=== PATIENT | female | born 1950 | race Caucasian/White ===

== ENCOUNTER 2018-03-12 17:52 | Inpatient (IN) | payer MEDICARE ==
[~2018-03-12] VITALS: Ht 182.9 cm; Wt 121.6 kg
[2018-03-12 18:08] VITALS: BP 95/65
[2018-03-12] MEDS ORDERED: SERT25TA3 PO (18:26)
[2018-03-12] MEDS ORDERED: LEVO150T5 PO (18:26)
[2018-03-12] MEDS ORDERED: OXYC10TA6 PO (18:26)
[2018-03-12] MEDS ORDERED: IBUPROFEN 600 MG TABLET PO PRN (19:00)
[2018-03-12 19:26] VITALS: BP 122/82
[2018-03-12] MEDS: METRONIDAZOLE PMX 500MG/100ML 100 ML IV SCH (19:54)
[2018-03-12] MEDS: HEPARIN 5,000 UNITS/ML, 1ML SQ SCH (19:54)
[2018-03-12] MEDS: NS + 20MEQ KCL 1,000 ML IV SCH (19:54)
[2018-03-12] MEDS: ONDANSETRON 2MG/ML, 2ML IVPush PRN (19:54)
[2018-03-12] MEDS: OXYcodone IR 5MG TABLET PO PRN (19:55)
[2018-03-12 20:14] LABS: MEAN CORPUSCULAR HEMOGLOBIN 30.9 pg (27.0-34.8); MEAN CORPUSCULAR HGB CONC 34.5 g/dL (32.4-35.8); MEAN CORPUSCULAR VOLUME 89.5 fL (80-100); MEAN PLATELET VOLUME 9.3 fL (7.4-10.4); PLATELET COUNT 270 x10^3/uL (130-400); RED BLOOD COUNT 3.86 x10^6/uL (3.82-5.3); RED CELL DISTRIBUTION WIDTH 16.9 % (9.6-15.2)
[2018-03-12 20:25] LABS: ANION GAP 8 mmol/L (5-15); CALCIUM 9.7 mg/dL (8.5-10.1); CHLORIDE 103 mmol/L (98-107)
[2018-03-12 20:30] LABS: CREATININE 1.59 mg/dL (0.55-1.02)
[2018-03-12 20:40] LABS: MD YES
[2018-03-12 20:42] LABS: BASOS#(MANUAL) 0.09 x10^3/uL (0-0.1); BASOS% (MANUAL) 1 % (0-1); EOS#(MANUAL) 0.09 x10^3/uL (0.0-0.4); EOS% (MANUAL) 1 % (1-7); LYMPH#(MANUAL) 1.22 x10^3/uL (1-3.4); LYMPHS% (MANUAL) 14 % (22-44); MONOS#(MANUAL) 0.09 x10^3/uL (0.3-2.7); MONOS% (MANUAL) 1 % (2-9); SEG#(MANUAL) 7.22 x10^3/uL (1.8-6.8); SEGS% (MANUAL) 83 % (42-75)
[2018-03-12 20:43] LABS: ANISOCYTOSIS 1+
[2018-03-12 20:45] LABS: <PLATELET ESTIMATE> ADEQUATE; <PLT MORPHOLOGY> NORMAL PLT MORPH
[2018-03-12] MEDS: HYDROmorphone 2 MG/ML, 1ML IVPush PRN (22:24)
[2018-03-12] MEDS: CEFTRIAXONE PMX 1GM/50ML 50 ML IV SCH (22:24)
[2018-03-13] MEDS: METRONIDAZOLE PMX 500MG/100ML 100 ML IV SCH ×3 (02:54→21:10)
[2018-03-13] MEDS: ONDANSETRON 2MG/ML, 2ML IVPush PRN ×3 (04:23→21:27)
[2018-03-13] MEDS: HYDROmorphone 2 MG/ML, 1ML IVPush PRN ×5 (04:23→21:10)
[2018-03-13 04:42] LABS: MEAN CORPUSCULAR HEMOGLOBIN 30.7 pg (27.0-34.8); MEAN CORPUSCULAR HGB CONC 34.2 g/dL (32.4-35.8); MEAN CORPUSCULAR VOLUME 89.9 fL (80-100); MEAN PLATELET VOLUME 9.3 fL (7.4-10.4); PLATELET COUNT 295 x10^3/uL (130-400); RED CELL DISTRIBUTION WIDTH 17.5 % (9.6-15.2)
[2018-03-13 04:54] LABS: ALBUMIN 2.4 g/dL (3.4-5.0); ANION GAP 11 mmol/L (5-15); CALCIUM 9.4 mg/dL (8.5-10.1); CHLORIDE 101 mmol/L (98-107)
[2018-03-13 04:57] LABS: ALANINE AMINOTRANSFERASE 409 U/L (12-78); ALKALINE PHOSPHATASE 963 U/L (45-117)
[2018-03-13 04:59] LABS: CREATININE 1.57 mg/dL (0.55-1.02); TOTAL PROTEIN 6.7 g/dL (6.4-8.2)
[2018-03-13 05:01] LABS: BILIRUBIN,TOTAL 19.9 mg/dL (0.2-1.0)
[2018-03-13] MEDS ORDERED: POTASSIUM CHLORIDE 20 MEQ TAB.ER.PRT PO ONE (05:30)
[2018-03-13] MEDS: LEVOTHYROXINE 150 MCG TABLET PO SCH (05:41)
[2018-03-13 05:57] LABS: MD YES
[2018-03-13 06:04] LABS: ANISOCYTOSIS 1+; BASOS#(MANUAL) 0.17 x10^3/uL (0-0.1); BASOS% (MANUAL) 2 % (0-1); EOS#(MANUAL) 0.09 x10^3/uL (0.0-0.4); EOS% (MANUAL) 1 % (1-7); LYMPH#(MANUAL) 1.53 x10^3/uL (1-3.4); LYMPHS% (MANUAL) 18 % (22-44); MONOS#(MANUAL) 0.51 x10^3/uL (0.3-2.7); MONOS% (MANUAL) 6 % (2-9); SEG#(MANUAL) 6.21 x10^3/uL (1.8-6.8); SEGS% (MANUAL) 73 % (42-75)
[2018-03-13 06:05] LABS: <PLATELET ESTIMATE> ADEQUATE; <PLT MORPHOLOGY> NORMAL PLT MORPH
[2018-03-13 07:30] VITALS: BP 115/71
[2018-03-13] MEDS ORDERED: PROMETHAZINE 12.5 MG SUPP PR PRN (09:00)
[2018-03-13] MEDS: HEPARIN 5,000 UNITS/ML, 1ML SQ SCH ×2 (09:50→19:48)
[2018-03-13] MEDS: SERTRALINE 50MG TABLET PO SCH (09:50)
[2018-03-13] MEDS: ONDANSETRON ODT 4 MG PO PRN ×2 (09:50→21:10)
[2018-03-13 14:35] VITALS: BP 113/79
[2018-03-13] MEDS: NS + 20MEQ KCL 1,000 ML IV SCH (17:13)
[2018-03-13] MEDS: PROCHLORPERAZINE 5 MG TABLET PO PRN (17:36)
[2018-03-13 19:24] VITALS: BP 106/69
[2018-03-13] MEDS: CEFTRIAXONE PMX 1GM/50ML 50 ML IV SCH (19:47)
[2018-03-14 01:09] VITALS: BP 128/74
[2018-03-14] MEDS: HYDROmorphone 2 MG/ML, 1ML IVPush PRN ×6 (01:15→21:18)
[2018-03-14] MEDS: PROCHLORPERAZINE 5 MG TABLET PO PRN (01:15)
[2018-03-14 04:28] LABS: MEAN CORPUSCULAR HEMOGLOBIN 31.2 pg (27.0-34.8); MEAN CORPUSCULAR HGB CONC 34.5 g/dL (32.4-35.8); MEAN CORPUSCULAR VOLUME 90.2 fL (80-100); MEAN PLATELET VOLUME 9.1 fL (7.4-10.4); PLATELET COUNT 285 x10^3/uL (130-400); RED BLOOD COUNT 3.65 x10^6/uL (3.82-5.3); RED CELL DISTRIBUTION WIDTH 16.7 % (9.6-15.2)
[2018-03-14 04:41] LABS: ALBUMIN 2.3 g/dL (3.4-5.0); ANION GAP 7 mmol/L (5-15); CALCIUM 9.1 mg/dL (8.5-10.1); CHLORIDE 103 mmol/L (98-107)
[2018-03-14 04:45] LABS: ALANINE AMINOTRANSFERASE 330 U/L (12-78); ALKALINE PHOSPHATASE 865 U/L (45-117); TOTAL PROTEIN 6.4 g/dL (6.4-8.2)
[2018-03-14 04:49] LABS: BILIRUBIN,TOTAL 17.6 mg/dL (0.2-1.0)
[2018-03-14 05:11] LABS: MD YES
[2018-03-14 05:16] LABS: ANISOCYTOSIS 1+; BASOS#(MANUAL) 0.16 x10^3/uL (0-0.1); BASOS% (MANUAL) 2 % (0-1); EOS#(MANUAL) 0.39 x10^3/uL (0.0-0.4); EOS% (MANUAL) 5 % (1-7); LYMPH#(MANUAL) 0.94 x10^3/uL (1-3.4); LYMPHS% (MANUAL) 12 % (22-44); METAMYELOCYTES# (MANUAL) 0.08 x10^3/uL (0-0); METAMYELOCYTES% (MANUAL) 1 % (0-1); MONOS#(MANUAL) 0.55 x10^3/uL (0.3-2.7); MONOS% (MANUAL) 7 % (2-9); MYELOCYTES# (MANUAL) 0.08 x10^3/uL (0-0); MYELOCYTES% (MANUAL) 1 % (0-0); SEG#(MANUAL) 5.62 x10^3/uL (1.8-6.8); SEGS% (MANUAL) 72 % (42-75)
[2018-03-14] MEDS: METRONIDAZOLE PMX 500MG/100ML 100 ML IV SCH ×3 (05:16→21:19)
[2018-03-14] MEDS: LEVOTHYROXINE 150 MCG TABLET PO SCH (05:16)
[2018-03-14 05:18] LABS: POLYCHROMASIA 1+; TARGET CELLS 1+
[2018-03-14 05:19] LABS: <PLATELET ESTIMATE> ADEQUATE; LARGE PLATELETS 1+
[2018-03-14] MEDS: ONDANSETRON 2MG/ML, 2ML IVPush PRN ×2 (05:26→10:18)
[2018-03-14] MEDS ORDERED: PROCHLORPERAZINE 5 MG/ML, 2ML IV PRN (07:00)
[2018-03-14] MEDS ORDERED: FENTANYL PF 100 MCG/2ML IV PRN (07:00)
[2018-03-14] MEDS ORDERED: LABETALOL 5MG/ML, 20ML IV PRN (07:00)
[2018-03-14] MEDS ORDERED: hydrALAzine 20 MG/ML, 1ML IV PRN (07:00)
[2018-03-14] MEDS ORDERED: MEPERIDINE/PF 25MG/0.5ML IVPush PRN (07:00)
[2018-03-14] MEDS ORDERED: HYDROmorphone 2 MG/ML, 1ML IVPush PRN (07:00)
[2018-03-14] MEDS ORDERED: METOPROLOL 1 MG/ML, 5ML IV PRN (07:00)
[2018-03-14] MEDS ORDERED: HALOPERIDOL 5 MG/ML IV PRN (07:00)
[2018-03-14] MEDS ORDERED: PROMETHAZINE 25 MG/ML, 1ML IV PRN (07:00)
[2018-03-14] MEDS ORDERED: DIPHENHYDRAMINE 50 MG/ML, 1ML IVPush PRN (07:00)
[2018-03-14] MEDS ORDERED: MIDAZOLAM 1 MG/ML, 2ML ONE (07:01)
[2018-03-14] MEDS ORDERED: FENTANYL PF 100 MCG/2ML ONE (07:01)
[2018-03-14] MEDS ORDERED: SUCCINYLCHOLINE 20 MG/ML, 10ML ONE (07:04)
[2018-03-14] MEDS ORDERED: DEXAMETHASONE 4 MG/ML, 1ML ONE (07:04)
[2018-03-14] MEDS ORDERED: ROCURONIUM 10 MG/ML,10ML ONE (07:04)
[2018-03-14] MEDS ORDERED: PROPOFOL 10 MG/ML, 20ML ONE (07:04)
[2018-03-14 09:08] VITALS: BP 124/80
[2018-03-14] MEDS: SERTRALINE 50MG TABLET PO SCH (10:06)
[2018-03-14] MEDS: HEPARIN 5,000 UNITS/ML, 1ML SQ SCH ×2 (10:06→21:26)
[2018-03-14 12:40] VITALS: BP 130/81
[2018-03-14 18:52] VITALS: BP 110/71
[2018-03-14] MEDS: CEFTRIAXONE PMX 1GM/50ML 50 ML IV SCH (19:49)
[2018-03-14] MEDS: NS + 20MEQ KCL 1,000 ML IV SCH (23:24)
[2018-03-15 01:00] VITALS: BP 132/81
[2018-03-15] MEDS: HYDROmorphone 2 MG/ML, 1ML IVPush PRN ×7 (01:13→22:57)
[2018-03-15] MEDS: ONDANSETRON 2MG/ML, 2ML IVPush PRN ×4 (01:13→22:56)
[2018-03-15] MEDS: METRONIDAZOLE PMX 500MG/100ML 100 ML IV SCH ×3 (04:39→21:52)
[2018-03-15] MEDS: LEVOTHYROXINE 150 MCG TABLET PO SCH (04:42)
[2018-03-15 06:53] VITALS: BP 115/71
[2018-03-15] MEDS: SERTRALINE 50MG TABLET PO SCH (09:37)
[2018-03-15] MEDS: HEPARIN 5,000 UNITS/ML, 1ML SQ SCH (09:40)
[2018-03-15 11:09] LABS: ALANINE AMINOTRANSFERASE 245 U/L (12-78); ALBUMIN 2.3 g/dL (3.4-5.0); ANION GAP 6 mmol/L (5-15); CALCIUM 9.2 mg/dL (8.5-10.1); CHLORIDE 106 mmol/L (98-107)
[2018-03-15 11:12] LABS: ALKALINE PHOSPHATASE 692 U/L (45-117); TOTAL PROTEIN 6.3 g/dL (6.4-8.2)
[2018-03-15 12:27] VITALS: BP 122/69
[2018-03-15] MEDS ORDERED: NS + 40MEQ KCL 1,000 ML IV SCH (14:30)
[2018-03-15] MEDS: ONDANSETRON ODT 4 MG PO PRN (16:43)
[2018-03-15] MEDS ORDERED: OMNIPAQUE 350 MG/ML, 100ML BOTTLE ONE (17:15)
[2018-03-15 19:17] VITALS: BP 108/73
[2018-03-15] MEDS: CEFTRIAXONE PMX 1GM/50ML 50 ML IV SCH (19:56)
[2018-03-16 02:05] VITALS: BP 129/75
[2018-03-16] MEDS: HYDROmorphone 2 MG/ML, 1ML IVPush PRN ×7 (02:09→23:23)
[2018-03-16] MEDS: PROCHLORPERAZINE 5 MG TABLET PO PRN (03:33)
[2018-03-16] MEDS: ONDANSETRON 2MG/ML, 2ML IVPush PRN ×3 (05:09→19:52)
[2018-03-16] MEDS: METRONIDAZOLE PMX 500MG/100ML 100 ML IV SCH ×3 (05:10→21:37)
[2018-03-16] MEDS: LEVOTHYROXINE 150 MCG TABLET PO SCH (05:14)
[2018-03-16 05:38] LABS: ALANINE AMINOTRANSFERASE 225 U/L (12-78); ALBUMIN 2.4 g/dL (3.4-5.0); ANION GAP 6 mmol/L (5-15); CALCIUM 8.7 mg/dL (8.5-10.1); CHLORIDE 109 mmol/L (98-107)
[2018-03-16 05:41] LABS: ALKALINE PHOSPHATASE 641 U/L (45-117); BILIRUBIN,TOTAL 5.7 mg/dL (0.2-1.0); CREATININE 1.17 mg/dL (0.55-1.02); TOTAL PROTEIN 6.6 g/dL (6.4-8.2)
[2018-03-16 07:30] VITALS: BP 118/70
[2018-03-16] MEDS: SERTRALINE 50MG TABLET PO SCH (09:19)
[2018-03-16] MEDS: CEFTRIAXONE PMX 1GM/50ML 50 ML IV SCH (20:00)
[2018-03-16 20:25] VITALS: BP 96/63
[2018-03-16] MEDS: HEPARIN 5,000 UNITS/ML, 1ML SQ SCH (21:38)
[2018-03-17 01:18] VITALS: BP 122/84
[2018-03-17] MEDS: ONDANSETRON 2MG/ML, 2ML IVPush PRN ×4 (02:07→23:07)
[2018-03-17] MEDS: HYDROmorphone 2 MG/ML, 1ML IVPush PRN ×7 (02:07→23:07)
[2018-03-17 05:21] LABS: ANION GAP 8 mmol/L (5-15); CALCIUM 8.6 mg/dL (8.5-10.1); CHLORIDE 107 mmol/L (98-107)
[2018-03-17 05:23] LABS: CREATININE 1.06 mg/dL (0.55-1.02)
[2018-03-17] MEDS: METRONIDAZOLE PMX 500MG/100ML 100 ML IV SCH ×3 (05:23→21:52)
[2018-03-17] MEDS: HEPARIN 5,000 UNITS/ML, 1ML SQ SCH ×3 (05:24→20:27)
[2018-03-17] MEDS: LEVOTHYROXINE 150 MCG TABLET PO SCH (05:25)
[2018-03-17 05:27] LABS: MEAN CORPUSCULAR HEMOGLOBIN 30.9 pg (27.0-34.8); MEAN CORPUSCULAR HGB CONC 33.7 g/dL (32.4-35.8); MEAN CORPUSCULAR VOLUME 91.6 fL (80-100); MEAN PLATELET VOLUME 8.7 fL (7.4-10.4); PLATELET COUNT 279 x10^3/uL (130-400); RED BLOOD COUNT 3.42 x10^6/uL (3.82-5.3); RED CELL DISTRIBUTION WIDTH 16.4 % (9.6-15.2)
[2018-03-17 06:20] LABS: MD YES
[2018-03-17 06:22] LABS: <PLATELET ESTIMATE> ADEQUATE; <PLT MORPHOLOGY> NORMAL PLT MORPH; ANISOCYTOSIS 1+; BANDS%(MANUAL) 1 % (0-7); BASOS% (MANUAL) 2 % (0-1); EOS% (MANUAL) 2 % (1-7); LYMPH#(MANUAL) 2.65 x10^3/uL (1-3.4); LYMPHS% (MANUAL) 26 % (22-44); MONOS#(MANUAL) 0.41 x10^3/uL (0.3-2.7); MONOS% (MANUAL) 4 % (2-9); POLYCHROMASIA 1+; SEG#(MANUAL) 6.63 x10^3/uL (1.8-6.8); SEGS% (MANUAL) 65 % (42-75)
[2018-03-17 08:02] VITALS: BP 111/76
[2018-03-17] MEDS: SERTRALINE 50MG TABLET PO SCH (08:59)
[2018-03-17 14:43] VITALS: BP 109/78
[2018-03-17 20:02] VITALS: BP 123/83
[2018-03-17] MEDS: CEFTRIAXONE PMX 1GM/50ML 50 ML IV SCH (20:22)
[2018-03-18 01:21] VITALS: BP 112/76
[2018-03-18] MEDS: HYDROmorphone 2 MG/ML, 1ML IVPush PRN ×6 (02:58→19:59)
[2018-03-18 04:31] LABS: BASOPHILS % (AUTO) 1 % (0-1); EOSINOPHILS # (AUTO) 0.22 x10^3/uL (0-0.4); EOSINOPHILS % (AUTO) 2 % (1-7); LYMPHOCYTES % (AUTO) 16 % (22-44); MD NO; MEAN CORPUSCULAR HGB CONC 33.8 g/dL (32.4-35.8); MEAN CORPUSCULAR VOLUME 91.8 fL (80-100); MEAN PLATELET VOLUME 8.4 fL (7.4-10.4); MONOCYTES # (AUTO) 0.82 x10^3/uL (0.2-0.8); MONOCYTES % (AUTO) 9 % (2-9); NEUTROPHILS # (AUTO) 7.02 x10^3/uL (1.8-6.8); NEUTROPHILS % (AUTO) 73 % (42-75); PLATELET COUNT 257 x10^3/uL (130-400); RED BLOOD COUNT 3.21 x10^6/uL (3.82-5.3); RED CELL DISTRIBUTION WIDTH 16.3 % (9.6-15.2)
[2018-03-18 04:46] LABS: ANION GAP 7 mmol/L (5-15); CHLORIDE 105 mmol/L (98-107)
[2018-03-18 04:48] LABS: CREATININE 1.03 mg/dL (0.55-1.02)
[2018-03-18] MEDS: HEPARIN 5,000 UNITS/ML, 1ML SQ SCH ×3 (04:56→21:43)
[2018-03-18] MEDS: METRONIDAZOLE PMX 500MG/100ML 100 ML IV SCH ×3 (05:23→21:43)
[2018-03-18] MEDS: ONDANSETRON 2MG/ML, 2ML IVPush PRN ×3 (05:23→18:19)
[2018-03-18] MEDS: LEVOTHYROXINE 150 MCG TABLET PO SCH (06:10)
[2018-03-18 07:47] VITALS: BP 107/72
[2018-03-18] MEDS: SERTRALINE 50MG TABLET PO SCH (09:09)
[2018-03-18] MEDS ORDERED: POTASSIUM CHLORIDE 40 MEQ in SODIUM CHLORIDE 0.9% 500 ML IV ONE (13:00)
[2018-03-18] MEDS ORDERED: MIDAZOLAM 1 MG/ML, 2ML ONE (13:33)
[2018-03-18] MEDS ORDERED: FENTANYL PF 100 MCG/2ML ONE (13:33)
[2018-03-18] MEDS ORDERED: DEXAMETHASONE 4 MG/ML, 1ML ONE (13:55)
[2018-03-18] MEDS ORDERED: SUCCINYLCHOLINE 20 MG/ML, 10ML ONE (13:55)
[2018-03-18] MEDS ORDERED: PROPOFOL 10 MG/ML, 20ML ONE (13:55)
[2018-03-18] MEDS ORDERED: HALOPERIDOL 5 MG/ML IV PRN (14:30)
[2018-03-18] MEDS ORDERED: hydrALAzine 20 MG/ML, 1ML IV PRN (14:30)
[2018-03-18] MEDS ORDERED: HYDROmorphone 2 MG/ML, 1ML IVPush PRN (14:30)
[2018-03-18] MEDS ORDERED: OXYcodone 5 MG/5 ML ORAL.SOL UDC PO PRN (14:30)
[2018-03-18] MEDS ORDERED: PROMETHAZINE 25 MG/ML, 1ML IV PRN (14:30)
[2018-03-18] MEDS ORDERED: ALBUTEROL SULFATE 2.5 MG/3 ML NPPB PRN (14:30)
[2018-03-18] MEDS ORDERED: LABETALOL 5MG/ML, 20ML IV PRN (14:30)
[2018-03-18] MEDS ORDERED: FENTANYL PF 100 MCG/2ML IV PRN (14:30)
[2018-03-18 15:30] VITALS: BP 107/56
[2018-03-18 19:48] VITALS: BP 119/95
[2018-03-18] MEDS: CEFTRIAXONE PMX 1GM/50ML 50 ML IV SCH (19:52)
[2018-03-19 00:10] VITALS: BP 122/77
[2018-03-19] MEDS: ONDANSETRON 2MG/ML, 2ML IVPush PRN ×2 (01:55→10:13)
[2018-03-19] MEDS: HYDROmorphone 2 MG/ML, 1ML IVPush PRN ×2 (02:22→05:56)
[2018-03-19 04:01] VITALS: BP 127/78
[2018-03-19 05:22] LABS: ALANINE AMINOTRANSFERASE 128 U/L (12-78); ALBUMIN 2.5 g/dL (3.4-5.0); ANION GAP 3 mmol/L (5-15); BASOPHILS # (AUTO) 0.05 x10^3/uL (0-0.1); BASOPHILS % (AUTO) 1 % (0-1); CHLORIDE 107 mmol/L (98-107); EOSINOPHILS # (AUTO) 0.04 x10^3/uL (0-0.4); EOSINOPHILS % (AUTO) 0 % (1-7); LYMPHOCYTES # (AUTO) 0.88 x10^3/uL (1-3.4); LYMPHOCYTES % (AUTO) 8 % (22-44); MD NO; MEAN CORPUSCULAR HGB CONC 34.8 g/dL (32.4-35.8); MEAN PLATELET VOLUME 8.2 fL (7.4-10.4); MONOCYTES # (AUTO) 0.85 x10^3/uL (0.2-0.8); MONOCYTES % (AUTO) 7 % (2-9); NEUTROPHILS # (AUTO) 9.96 x10^3/uL (1.8-6.8); NEUTROPHILS % (AUTO) 85 % (42-75); PLATELET COUNT 279 x10^3/uL (130-400); RED BLOOD COUNT 3.08 x10^6/uL (3.82-5.3); RED CELL DISTRIBUTION WIDTH 15.8 % (9.6-15.2)
[2018-03-19 05:24] LABS: ALKALINE PHOSPHATASE 377 U/L (45-117); BILIRUBIN,TOTAL 4.4 mg/dL (0.2-1.0); CREATININE 1.01 mg/dL (0.55-1.02); TOTAL PROTEIN 6.6 g/dL (6.4-8.2)
[2018-03-19] MEDS: HEPARIN 5,000 UNITS/ML, 1ML SQ SCH ×3 (05:34→19:35)
[2018-03-19] MEDS: METRONIDAZOLE PMX 500MG/100ML 100 ML IV SCH ×3 (05:34→21:14)
[2018-03-19] MEDS: LEVOTHYROXINE 150 MCG TABLET PO SCH (05:34)
[2018-03-19 07:53] VITALS: BP 124/70
[2018-03-19] MEDS: SERTRALINE 50MG TABLET PO SCH (10:04)
[2018-03-19] MEDS: OXYcodone IR 5MG TABLET PO PRN ×4 (10:13→22:45)
[2018-03-19 14:04] VITALS: BP 118/80
[2018-03-19] MEDS: ONDANSETRON ODT 4 MG PO PRN (14:06)
[2018-03-19] MEDS: CEFTRIAXONE PMX 1GM/50ML 50 ML IV SCH (19:35)
[2018-03-19 20:13] VITALS: BP 117/75
[2018-03-20 01:28] VITALS: BP 102/69
[2018-03-20] MEDS: OXYcodone IR 5MG TABLET PO PRN ×5 (03:00→21:04)
[2018-03-20 04:42] LABS: BASOPHILS # (AUTO) 0.12 x10^3/uL (0-0.1); BASOPHILS % (AUTO) 1 % (0-1); EOSINOPHILS % (AUTO) 3 % (1-7); LYMPHOCYTES # (AUTO) 2.35 x10^3/uL (1-3.4); LYMPHOCYTES % (AUTO) 21 % (22-44); MD NO; MEAN CORPUSCULAR HEMOGLOBIN 31.6 pg (27.0-34.8); MEAN CORPUSCULAR HGB CONC 34.2 g/dL (32.4-35.8); MEAN CORPUSCULAR VOLUME 92.4 fL (80-100); MEAN PLATELET VOLUME 8.4 fL (7.4-10.4); MONOCYTES # (AUTO) 0.79 x10^3/uL (0.2-0.8); MONOCYTES % (AUTO) 7 % (2-9); NEUTROPHILS # (AUTO) 7.42 x10^3/uL (1.8-6.8); NEUTROPHILS % (AUTO) 68 % (42-75); PLATELET COUNT 270 x10^3/uL (130-400); RED BLOOD COUNT 3.15 x10^6/uL (3.82-5.3); RED CELL DISTRIBUTION WIDTH 16.5 % (9.6-15.2)
[2018-03-20 04:52] LABS: ALANINE AMINOTRANSFERASE 119 U/L (12-78); ALBUMIN 2.5 g/dL (3.4-5.0); ANION GAP 8 mmol/L (5-15); CALCIUM 8.5 mg/dL (8.5-10.1); CHLORIDE 104 mmol/L (98-107); CREATININE 1.06 mg/dL (0.55-1.02)
[2018-03-20 04:54] LABS: ALKALINE PHOSPHATASE 331 U/L (45-117); BILIRUBIN,TOTAL 3.9 mg/dL (0.2-1.0); TOTAL PROTEIN 6.7 g/dL (6.4-8.2)
[2018-03-20] MEDS: LEVOTHYROXINE 150 MCG TABLET PO SCH (04:56)
[2018-03-20] MEDS: HEPARIN 5,000 UNITS/ML, 1ML SQ SCH ×3 (04:57→21:03)
[2018-03-20] MEDS: METRONIDAZOLE PMX 500MG/100ML 100 ML IV SCH ×3 (04:57→21:03)
[2018-03-20 07:20] VITALS: BP 109/70
[2018-03-20] MEDS: SERTRALINE 50MG TABLET PO SCH (07:30)
[2018-03-20] MEDS ORDERED: POTASSIUM CHLORIDE 40 MEQ in SODIUM CHLORIDE 0.9% 500 ML IV ONE (08:00)
[2018-03-20 13:43] VITALS: BP 110/66
[2018-03-20] MEDS ORDERED: CEFD300C37 PO (16:05)
[2018-03-20] MEDS ORDERED: METR-90 PO (16:05)
[2018-03-20 19:05] VITALS: BP 105/68
[2018-03-20] MEDS: CEFTRIAXONE PMX 1GM/50ML 50 ML IV SCH (20:04)
[2018-03-21 00:50] VITALS: BP 118/72
[2018-03-21] MEDS: OXYcodone IR 5MG TABLET PO PRN ×3 (02:16→10:21)
[2018-03-21] MEDS: METRONIDAZOLE PMX 500MG/100ML 100 ML IV SCH (05:26)
[2018-03-21] MEDS: LEVOTHYROXINE 150 MCG TABLET PO SCH (05:26)
[2018-03-21] MEDS: HEPARIN 5,000 UNITS/ML, 1ML SQ SCH (05:26)
[2018-03-21] MEDS: SERTRALINE 50MG TABLET PO SCH (07:20)
[2018-03-21 07:36] VITALS: BP 122/75
== END 2018-03-21 11:05 | disposition home or self-care (01) | DRG 444 ==
LOC: 3NW 17:52 → DCLOUNGE 03-21 10:45
PROVIDERS: ADMIT Internal Medicine; ATTEND Internal Medicine
PROC: 0FD98ZX Extraction of Common Bile Duct, Via Natural or Artificial Opening Endoscopic, Diagnostic (ICD-10-PCS; 2018-03-14)
PROC: BF111ZZ Fluoroscopy of Biliary and Pancreatic Ducts using Low Osmolar Contrast (ICD-10-PCS; 2018-03-14)
PROC: 0F798DZ Dilation of Common Bile Duct with Intraluminal Device, Via Natural or Artificial Opening Endoscopic (ICD-10-PCS; principal; 2018-03-14 07:00)
PROC: 0FBG8ZX Excision of Pancreas, Via Natural or Artificial Opening Endoscopic, Diagnostic (ICD-10-PCS; 2018-03-18)
PROC: 0DJ08ZZ Inspection of Upper Intestinal Tract, Via Natural or Artificial Opening Endoscopic (ICD-10-PCS; 2018-03-18)
DX: K83.1 Obstruction of bile duct (principal); E43 Unspecified severe protein-calorie malnutrition; N39.0 Urinary tract infection, site not specified; D68.9 Coagulation defect, unspecified; E87.1 Hypo-osmolality and hyponatremia; K86.89 Other specified diseases of pancreas; E66.01 Morbid (severe) obesity due to excess calories; E03.9 Hypothyroidism, unspecified; E86.1 Hypovolemia; E87.6 Hypokalemia; F17.210 Nicotine dependence, cigarettes, uncomplicated; F32.9 Major depressive disorder, single episode, unspecified; G89.29 Other chronic pain; N18.9 Chronic kidney disease, unspecified; Z79.891 Long term (current) use of opiate analgesic; Z82.49 Family history of ischemic heart disease and other diseases of the circulatory system; Z87.440 Personal history of urinary (tract) infections; Z90.711 Acquired absence of uterus with remaining cervical stump; Z92.3 Personal history of irradiation; Z96.653 Presence of artificial knee joint, bilateral; Z68.36 Body mass index [BMI] 36.0-36.9, adult; Z90.710 Acquired absence of both cervix and uterus; Z90.49 Acquired absence of other specified parts of digestive tract
CPT/HCPCS: 36415; 71260; 74178; 74328; 80048; 80053; 82140; 83735; 84100; 84443; 85025; 86301; 88104; 88112; 88172; 88173; 88177; 88307; G0378; J0696; J1100; J1170; J1644; J2250; J2405; J2704; J3010; J3480; Q0162; Q9967; C1769; C1894; C2625; J0330; J7040; Q0164